=== PATIENT | male | born 1970 | race Caucasian/White ===

== ENCOUNTER 2021-03-16 10:54 | Day surgery (SDC) | payer BC ==
[2021-03-10 12:47] VITALS: BMI 36.8
[~2021-03-16 10:54] MED LIST: LACTATED RINGERS 1,000 ML IV SCH; LIDOCAINE 1% (10MG/ML) FOR IV START INTRADERMA PRN
[2021-03-16 11:48] VITALS: RESP 16; TEMP 98.1
[2021-03-16] MEDS ORDERED: LIDOCAINE 1% INJ 10MG/ML (20 ML MDV) ONE (12:47)
[2021-03-16] MEDS ORDERED: PROPOFOL 10 MG/ML 20 ML VIAL IV ONE (12:47)
--- NOTE | 2021-03-16 13:49 | P.PCN ---
Date of Procedure: 03/16/21 Description of Procedure: BRIEF HISTORY: Patient is a 61-year-old male presenting for outpatient colonoscopy for screening for malignant neoplasm of the colon. No prior colonoscopies reported. No change in bowel habits. No abdominal pain. No family history of colon cancer reported. PROCEDURE PERFORMED: Colonoscopy with polypectomy and Endo Clip placement. PREOPERATIVE DIAGNOSIS: Screening for malignant neoplasm of the colon, no prior colonoscopy. ESTIMATED BLOOD LOSS: Minimal. IV sedation per Anesthesia. PROCEDURE: After informed consent was obtained, the patient, was brought into the endoscopy unit. IV sedation was administered by Anesthesia under continuous monitoring. Digital rectal examination was normal. Initially the Olympus CF-190 flexible video colonoscope was then inserted in the rectum, gradually advanced into the cecum without any difficulty. Careful examination was performed as the scope was gradually being withdrawn. Ileocecal valve and the appendiceal orifice were visualized and appeared normal. Prep was excellent. Mucosa of the cecum, ascending colon, transverse colon, descending colon, sigmoid colon, and rectum appeared normal 3 medium-sized polyps measuring 6-8 mm in size removed with cold snare polypectomy from the hepatic flexure with Endo Clip placed for hemostasis at the site of one polypectomy. Flat 4 mm transverse colon polyp removed with cold snare polypectomy. Diminutive 1 mm transverse colon polyp removed with cold forcep polypectomy. Flat 4 mm splenic flexure polyp removed with cold snare polypectomy. Diminutive 2 mm descending colon polyp removed with cold forcep polypectomy. 3 polyps measuring 3-5 mm were removed from the sigmoid colon with cold snare polypectomy. Retroflexion was performed in the rectum and no lesions were seen. The patient tolerated the procedure well. IMPRESSION: 8 polyps removed with cold snare polypectomy from the transverse colon, hepatic flexure 3, splenic flexure, and sigmoid colon 3. 2 diminutive polyps removed with cold forcep polypectomy from the transverse colon and descending colon. Endo Clip placements for hemostasis at the site of polypectomy in the hepatic flexure. RECOMMENDATIONS: Findings of this examination were discussed with the patient and his family. Okay to resume diet. Okay to resume medications. Await pathology from polypectomy. Recommend repeat colonoscopy in 1 year for colon polyps any pathology from polypectomy
[2021-03-16 14:13] VITALS: BP 111/64; PULSE 57
== END 2021-03-16 14:22 | disposition home or self-care (01) ==
LOC: ORWHC2ENDO 10:54
PROVIDERS: ATTEND Internal Medicine
DX: Z12.11 Encounter for screening for malignant neoplasm of colon (principal); D12.3 Benign neoplasm of transverse colon; I10 Essential (primary) hypertension; N40.0 Benign prostatic hyperplasia without lower urinary tract symptoms; E66.9 Obesity, unspecified; Z79.899 Other long term (current) drug therapy
CPT/HCPCS: 88305; 45380; 45385; J2001; J2704; 45382

== ENCOUNTER 2023-04-21 08:33 | Day surgery (SDC) | payer BC ==
[2023-04-13 16:44] VITALS: BMI 39.0
--- NOTE | 2023-04-21 07:49 | P.GSHP ---
History of Present Illness H&P Date: 04/21/23 Chief Complaint: Chronic cholecystitis 53-year-old male known to our service. Went to the ER recently complaining of right-sided abdominal pain. Workup showed gallstones. Liver enzymes normal. No change in the color of his skin urine or stool. Symptoms aggravated by gre asy foods. Past Medical History Past Medical History: Chest Pain / Angina, Hypertension, Osteoarthritis (OA), Prostate Disorder Additional Past Medical History / Comment(s): BPH, HX CHESTPAIN-PT STATES STRESS TEST AND HEART CATH NEGATIVE. History of Any Multi-Drug Resistant Organisms: None Reported Past Surgical History: Heart Catheterization, Orthopedic Surgery Additional Past Surgical History / Comment(s): left hip surgery at 7 yrs old (pin inserted and removed) Past Anesthesia/Blood Transfusion Reactions: No Reported Reaction Additional Past Anesthesia/Blood Transfusion Reaction / Comment(s): no hx blood transfusion Smoking Status: Never smoker - Past Family History Father Family Medical History: Cancer Additional Family Medical History / Comment(s): Father of kidney CA Mother Family Medical History: Cancer Additional Family Medical History / Comment(s): breast cancer Medications and Allergies Home Medications Medication Instructions Recorded Confirmed Type Multivitamin [Men's Multi-Vitamin] 1 tab PO DAILY 10/20/15 04/13/23 History Finasteride [Proscar] 5 mg PO QAM 03/10/21 04/13/23 History Metoprolol Tartrate [Lopressor] 100 mg PO BID 03/10/21 04/13/23 History lisinopriL [Prinivil] 10 mg PO HS 03/10/21 04/13/23 History Allergies Allergy/AdvReac Type Severity Reaction Status Date / Time No Known Allergies Allergy Verified 04/13/23 16:38 Surgical - Exam Physical exam: General: Well-developed, well-nourished HEENT: Normocephalic, sclerae nonicteric Abdomen: Nontender, nondistended Extremities: No edema Neuro: Alert and oriented Assessment and Plan (1) Chronic cholecystitis Narrative/Plan: 53-year-old male with chronic cholecystitis. We'll proceed with laparoscopic, possible open cholecystectomy. Risks of bleeding, infection, bile leak, bile duct injury, retained common bile duct stone, trocar injury, conversion to an open procedure, hernia, anesthesia related complications were reviewed. The patient understands and wishes to proceed. Status: Acute Code(s): K81.1 - CHRONIC CHOLECYSTITIS SNOMED Code(s): 25145666
[~2023-04-21 08:33] MED LIST changes: +ACETAMINOPHEN TAB 500 MG TAB PO PRN; +HEPARIN SODIUM,PORCINE/PF 5,000 UNIT/0.5 ML SYRINGE SQ PRN; -LACTATED RINGERS 1,000 ML IV SCH; -LIDOCAINE 1% (10MG/ML) FOR IV START INTRADERMA PRN; +ceFAZolin 3 GM in SODIUM CHLORIDE 0.9% 100 ML IVPB PRN
[2023-04-21] MEDS ORDERED: ONDANSETRON 4 MG/2 ML VIAL ONE (09:02)
[2023-04-21] MEDS ORDERED: ONDANSETRON 4 MG/2 ML VIAL IVP ONE (09:05)
[2023-04-21] MEDS ORDERED: DEXAMETHASONE SOD PHOSPHATE 4 MG/ML 1 ML VIAL IV ONE (09:05)
[2023-04-21] MEDS ORDERED: LACTATED RINGERS 1,000 ML IV SCH (09:05)
[2023-04-21] MEDS ORDERED: HYDROmorphone 0.5 MG/0.5 ML SYRINGE IVP PRN (09:05)
[2023-04-21] MEDS ORDERED: ePHEDrine 50 MG/ML 1 ML VIAL ONE (10:07)
[2023-04-21] MEDS ORDERED: ROCURONIUM 10 MG/ML (5 ML VIAL) IV ONE (10:07)
[2023-04-21] MEDS ORDERED: PROPOFOL 10 MG/ML 20 ML VIAL IV ONE (10:07)
[2023-04-21] MEDS ORDERED: MIDAZOLAM 2 MG/2 ML VIAL ONE (10:07)
[2023-04-21] MEDS ORDERED: KETAMINE 10 MG/ML 20 ML VIAL ONE (10:07)
[2023-04-21] MEDS ORDERED: GLYCOPYRROLATE 0.2 MG/ML 2 ML VIAL ONE (10:07)
[2023-04-21] MEDS ORDERED: NEOSTIGMINE 1 MG/ML 10 ML VIAL ONE (10:07)
[2023-04-21] MEDS ORDERED: fentaNYL (PF) 50 MCG/ML 2 ML AMP ONE (10:07)
[2023-04-21] MEDS ORDERED: SUCCINYLCHOLINE CHLORIDE 200 MG/10 ML VIAL IV ONE (10:07)
[2023-04-21] MEDS ORDERED: LIDOCAINE 2% INJ 20 MG/ML (2 ML VIAL) ONE (10:07)
[2023-04-21] MEDS ORDERED: BUPIVACAINE (PF) 0.25% 30 ML VIAL SQ ONE (10:36)
[2023-04-21] MEDS ORDERED: LACTATED RINGERS 1,000 ML IV ONE (11:09)
--- NOTE | 2023-04-21 11:18 | P.OP ---
Date of Procedure: 04/21/23 Procedure(s) Performed: PREOPERATIVE DIAGNOSIS: Chronic cholecystitis POSTOPERATIVE DIAGNOSIS: Same PROCEDURE: Laparoscopic cholecystectomy SURGEON: Janiya EBL: Minimal see anesthesia record ANESTHESIA: Gen. COMPLICATIONS: None OPERATIVE PROCEDURE: The patient was brought and placed on the operating room table in the supine position. The patient was placed under general anesthesia at that time. The abdomen was prepped and draped in the usual sterile fashion. A small vertical infraumbilical incision was made. The fascia was grasped with the Alex forceps. The fascia was retracted anteriorly. The Veress needle was advanced into the peritoneal cavity. The saline drop test was normal. Insufflation took place up to 15 mmHg. A 5 mm optical trocar was advanced and the peritoneal cavity. 2 additional 5 mm trochars were placed in the right upper quadrant under direct visualization. A 12 mm trocar was advanced into the epigastric incision site. The gallbladder was retracted superiorly and laterally. The peritoneum overlying the infundibulum was bluntly dissected. The patient's cystic duct was visualized. The junction between the cystic duct common and hepatic duct was identified. The critical view of safety was achieved after blunt dissection. The cystic duct was then divided after placement of 3 12 mm clips on the patient's side and one on the specimen side. The cystic artery was identified and clipped as well. A small vessel was seen along the gallbladder fossa and clipped as well. The gallbladder was then removed from the liver bed using electrocautery. The gallbladder was then removed from the epigastric trocar site with an Endo Catch bag. The gallbladder fossa was irrigated with saline. There was no evidence of any bleeding or biliary drainage seen. The fascia at the 12 millimeter site was closed using a Sridhar-Stephen 0 Vicryl stitch. The trochars were then removed. The skin at all 4 sites was closed using a 4-0 Monocryl stitch. Skin glue was utilized on the incision sites. At the end of this procedure the sponge and needle counts were correct. DISPOSITION: Stable to the recovery room
[2023-04-21 11:23] VITALS: TEMP 96.8
[2023-04-21] MEDS ORDERED: HYDROmorphone 0.5 MG/0.5 ML SYRINGE IVP ONE ×2 (11:38→11:50)
[2023-04-21] MEDS ORDERED: ACETAMINOPHEN TAB 325 MG TAB PO SCH (12:00)
[2023-04-21 12:28] VITALS: RESP 18
[2023-04-21 12:42] VITALS: BP 112/66; PULSE 60
[2023-04-21] MEDS ORDERED: IBUPROFEN 600 MG TAB PO SCH (14:15)
== END 2023-04-21 13:22 | disposition home or self-care (01) ==
LOC: OR 08:33
PROVIDERS: ATTEND Surgery
DX: K80.10 Calculus of gallbladder with chronic cholecystitis without obstruction (principal); I10 Essential (primary) hypertension; M19.90 Unspecified osteoarthritis, unspecified site; Z80.51 Family history of malignant neoplasm of kidney; Z98.890 Other specified postprocedural states; Z79.899 Other long term (current) drug therapy
CPT/HCPCS: 47562; J2250; J0330; J1100; J2710; J0690; J2405; J3010; J2704; J1170; J1644; J2001; 88304